=== PATIENT | male | born 1980 | race African-American/Black ===

== ENCOUNTER 2024-02-05 22:25 | Emergency (ER) | payer SELFPAY ==
[2024-02-05 23:06] LABS: #Basophils 0.07 10x3/uL (0.0-0.2); #Eosinophils 0.17 10x3/uL (0.0-0.5); #Monocytes 0.49 10x3/uL (0.0-1.1); #Neutrophils 5.29 10x3/uL (1.5-8.4); %Basophils 0.8 % (0.0-2.0); %Lymphocytes 29.5 % (18.0-47.0); %Monocytes 5.7 % (0.0-10.0); %Neutrophils 61.7 % (40.0-75.0); Hematocrit 37.8 % (38.8-50.0); Hemoglobin 13.2 g/dL (13.5-17.5); Mean Corpuscular HGB CONC 34.9 g/dL (32.0-36.0); Mean Corpuscular Hemoglobin 29.7 pg (27.0-33.0); Mean Corpuscular Volume 85.1 fL (81.2-95.1); RBC Distribution Width 13.9 % (11.5-14.5); Red Blood Cell (RBC) Count 4.44 10x6/uL (4.32-5.72); White Blood Cell (WBC) Count 8.6 10x3/uL (3.5-10.5)
[2024-02-05 23:16] LABS: Platelet Count 240 10x3/uL (150-450)
[2024-02-05 23:20] LABS: Acetaminophen Less than 10 mcg/mL (Less than 10); Alcohol Less than 10.0 mg/dL (Less than 10); Salicylate Less than 8.0 mg/dL (Less than 8.0)
[2024-02-05 23:22] LABS: ALT (SGPT) 11 U/L (8-55); AST (SGOT) 21 U/L (5-34); Albumin 3.5 g/dL (3.5-5.0); Alkaline Phosphatase 43 U/L (40-110); Anion Gap 10 mmol/L (10-20); BUN (Urea Nitrogen) 10 mg/dL (8.9-20.6); Bilirubin, Total 1.2 mg/dL (0.2-1.2); CK (CPK) 121 U/L (30-200); Calc. Creatinine Clearance 0 mL/min (70-130); Calcium 8.5 mg/dL (7.8-10.44); Carbon Dioxide 23 mmol/L (22-29); Chloride 108 mmol/L (98-107); Estimated GFR 79; Globulin 2.9 g/dL (2.4-3.5); Glucose 111 mg/dL (70-105); Potassium 3.4 mmol/L (3.5-5.1); Protein, Total 6.4 g/dL (6.0-8.3); Sodium 138 mmol/L (136-145)
[2024-02-05 23:38] LABS: Amphetamine Not Detected (NotDetected); Barbiturates Screen Not Detected (NotDetected); Benzodiazepine Screen Not Detected (NotDetected); Cocaine Metabolite Screen Not Detected (NotDetected); Methadone Not Detected (NotDetected); Methamphetamine Not Detected (NotDetected); Opiate Screen Detected (NotDetected); Oxycodone Screen Not Detected (NotDetected); Phencyclidine (PCP) Not Detected (NotDetected); THC/Cannabinoid Screen Not Detected (NotDetected); Tricyclic Screen Not Detected (NotDetected)
== END 2024-02-06 04:41 ==
LOC: CSHERS 22:25
DX: R45.851 Suicidal ideations (principal); F17.210 Nicotine dependence, cigarettes, uncomplicated
CPT/HCPCS: 36415; 80053; 80306; 80307; 82550; 85025; 93005